=== PATIENT | female | born 1985 | race Asian ===

== ENCOUNTER → 2024-07-02 | Outpatient (CLI) | payer BC ==
[2024-07-02 16:53] LABS: Basophils % (auto) 0.9 % (0.0-2.0); Eosinophils % (auto) 4.3 % (0.0-7.0); Lymphocytes % (auto) 32.1 % (10.0-50.0); Monocytes % (auto) 7.8 % (0.0-12.0); Neutrophils % (auto) 54.9 % (37.0-80.0); White Blood Cell 5.9 10^3/uL (4.4-10.8)
[2024-07-02 16:54] LABS: Basophils # (auto) 0.1 10 ^3/uL (0-0.2); Eosinophils # (auto) 0.3 10 ^3/uL (0-0.8); Hematocrit 41.4 % (36.0-46.0); Lymphocytes # (auto) 1.9 10 ^3/uL (0.4-5.4); Mean Corpuscular Hemoglobin 30.6 pg (28.0-32.0); Mean Corpuscular Hgb Conc. 33.9 g/dL (32.0-36.0); Mean Corpuscular Volume 90.4 fL (80.0-100.0); Monocytes # (auto) 0.5 10 ^3/uL (0-1.3); Neutrophils # (auto) 3.3 10 ^3/uL (1.6-8.6); Platelet Count (auto) 328 10^3/uL (140-450); Red Blood Cells 4.58 10^6/uL (4.0-5.20); Red Cell Distribution Width 13.3 % (11.8-14.3)
[2024-07-02 16:55] LABS: Erythrocyte Sedimentation Rate 13 mm/hr (0-20)
[2024-07-02 16:58] LABS: Anion Gap 9 (5-15); Carbon Dioxide 25 mmol/L (20-31); Chloride 106 mmol/L (98-107); Potassium 4.1 mmol/L (3.5-5.1); Sodium 140 mmol/L (136-145)
[2024-07-02 16:59] LABS: Alanine Aminotransferase 30 U/L (7-40); Albumin 4.5 g/dL (3.2-4.8); Alkaline Phosphatase 60 U/L (46-116); Aspartate Aminotransferase 18 U/L (13-40); BUN/Creatinine Ratio 27.5 (10.0-20.0); Bilirubin, Total 0.5 mg/dL (0.2-1.0); Blood Urea Nitrogen 22 mg/dL (9-23); Calcium 9.6 mg/dL (8.7-10.4); Cholesterol 191 mg/dL (< 200); Glucose 81 mg/dL (74-106); Total Protein 7.3 g/dL (5.7-8.2); Triglycerides 58 mg/dL (< 150)
[2024-07-02 17:00] LABS: HDL Cholesterol 61 mg/dL (40-59); LDL Cholesterol 128 mg/dL (< 100)
== END | disposition home or self-care (01) ==
LOC: LAB 16:44
PROVIDERS: ATTEND Internal Medicine
DX: E55.9 Vitamin D deficiency, unspecified (principal); M79.18 Myalgia, other site
CPT/HCPCS: 36415; 80053; 80061; 82306; 84439; 84443; 85025; 85652